=== PATIENT | male | born 1975 ===

== ENCOUNTER 2017-06-01 09:51 | Observation (INO) ==
[2017-06-01] MEDS ORDERED: ONDANSETRON 4 MG/2 ML VIAL IV PRN (12:18)
[2017-06-01] MEDS ORDERED: hydrALAZINE 20 MG/1 ML VIAL IV ONE (12:26)
[2017-06-01] MEDS ORDERED: ACETAMINOPHEN 325 MG TABLET PO PRN (12:46)
[2017-06-01] MEDS ORDERED: GLUCAGON 1 MG VIAL IM PRN (12:47)
[2017-06-01] MEDS ORDERED: DEXTROSE 50% 25 GM/50 ML VIAL IV PRN (12:47)
[2017-06-01] MEDS: CARVEDILOL 12.5 MG TABLET PO SCH ×2 (13:02→20:49)
[2017-06-01] MEDS: ASPIRIN EC 81 MG TABLET PO SCH (13:02)
[2017-06-01] MEDS: hydroCHLOROthiazide 25 MG TABLET PO SCH (13:02)
[2017-06-01] MEDS: GLIMEPIRIDE 4 MG TABLET PO SCH (13:02)
[2017-06-01] MEDS: CLOPIDOGREL 75 MG TABLET PO SCH (13:02)
[2017-06-01] MEDS: LOSARTAN 50 MG TABLET PO SCH (13:03)
[2017-06-01] MEDS ORDERED: DEXTROSE 5% NACL 0.45% 1,000 ML IV SCH (13:30)
[2017-06-01 15:54] LABS: Basophils % 0.3 % (0.0-0.8); Eosinophils # 0.1 10*3/uL (0.0-0.87); Eosinophils % 1.3 % (0.00-10.9); Hemoglobin 11.9 GM/DL (14.0-18.0); Immature Granulocytes % 0.2 %; Immature Granulocytes Absolute 0.02 #; Lymphocytes # 1.6 10*3/uL (1.4-4.0); Lymphocytes % 16.5 % (21.2-54.2); Mean Corpuscular Hemoglobin 31 PG (27-34); Mean Corpuscular Volume 91.9 FL (87-102); Mean Platelet Volume 11.2 FL (9.6-12.0); Monocytes # 0.8 10*3/uL (0.11-0.8); Monocytes % 8.2 % (1.7-12.7); Neutrophils % 73.5 % (38.7-73.9); Platelet Count 259 T/CUMM (130-400); Red Blood Count 3.81 MC/CUMM (3.8-5.5); Red Cell Distribution Width 12.8 % (9.3-17.3); White Blood Count 9.5 T/CUMM (4-12)
[2017-06-01 16:24] LABS: Calcium 8.2 MG/DL (8.5-10.1); Free T4 (Free Thyroxine) 1.11 NG/DL (0.76-1.46); Osmolality,Calculated 294.7 MOS/KG (273-304); Potassium 4.6 MMOL/L (3.5-5.1); Thyroid Stimulating Hormone 0.812 uIU/ml (0.358-3.74)
[2017-06-01] MEDS ORDERED: INSULIN NPH/REGULAR 70/30 100 UNIT/ML SUBCUT SCH (16:30)
[2017-06-01] MEDS ORDERED: ATORVASTATIN 20 MG TABLET PO SCH (21:00)
[2017-06-02] MEDS ORDERED: INSULIN NPH/REGULAR 70/30 100 UNIT/ML SUBCUT SCH (07:30)
[2017-06-02 07:37] LABS: Calcium 8.4 MG/DL (8.5-10.1); Potassium 5.1 MMOL/L (3.5-5.1)
[2017-06-02 07:43] LABS: Risk Ratio 3.43; VLDL CHOLESTEROL 24.4 MG/DL
[2017-06-02 08:11] VITALS: BP 169/79
[2017-06-02] MEDS ORDERED: PANTOPRAZOLE 40 MG TABLET PO SCH (09:00)
[2017-06-02] MEDS: GLIMEPIRIDE 4 MG TABLET PO SCH (09:12)
[2017-06-02] MEDS: LOSARTAN 50 MG TABLET PO SCH (09:13)
[2017-06-02] MEDS: CARVEDILOL 12.5 MG TABLET PO SCH (09:13)
[2017-06-02] MEDS: CLOPIDOGREL 75 MG TABLET PO SCH (09:13)
[2017-06-02] MEDS: ASPIRIN EC 81 MG TABLET PO SCH (09:13)
[2017-06-02] MEDS: hydroCHLOROthiazide 25 MG TABLET PO SCH (09:13)
== END 2017-06-02 10:30 | disposition home or self-care (01) ==
LOC: N.2E
PROVIDERS: ADMIT Family Medicine; ATTEND Family Medicine

== ENCOUNTER 2020-12-21 20:15 | Inpatient (IN) ==
[2020-12-21 22:59] LABS: Basophils # 0.1 10*3/uL (0.0-0.2); Basophils % 0.6 % (0.0-0.8); Eosinophils # 0.2 10*3/uL (0.0-0.87); Eosinophils % 2.3 % (0.00-10.9); Hematocrit 38.8 VOL% (42.0-52.0); Hemoglobin 12.1 GM/DL (14.0-18.0); Immature Granulocytes % 0.3 %; Immature Granulocytes Absolute 0.03 #; Lymphocytes # 1.2 10*3/uL (1.4-4.0); Mean Corpuscular HGB Conc 31.2 GM/DL (32-36); Mean Corpuscular Volume 93.9 FL (87-102); Mean Platelet Volume 9.8 FL (9.6-12.0); Monocytes % 6.8 % (1.7-12.7); Platelet Count 400 T/CUMM (130-400); Red Blood Count 4.13 MC/CUMM (3.8-5.5); Red Cell Distribution Width 13.5 % (9.3-17.3); White Blood Count 8.8 T/CUMM (4-12)
[2020-12-21 23:26] LABS: Alanine Aminotransferase 59 U/L (16-61); Albumin 2.4 G/DL (3.4-5.0); Alkaline Phosphatase 292 U/L (45-117); Aspartate Amino Transferase 33 U/L (0-37); Bilirubin,Total < 0.39 MG/DL (0.2-1.0); Blood Urea Nitrogen 53 MG/DL (7-18); Calcium 8.7 MG/DL (8.5-10.1); Carbon Dioxide 24 MMOL/L (21-32); Estimated Glom Filtration Rate 19 ML/MIN; Glucose 192 MG/DL (74-106); Osmolality,Calculated 295.5 MOS/KG (273-304); Potassium 4.3 MMOL/L (3.5-5.1); Sodium 139 MMOL/L (136-145); Total Protein 8.3 G/DL (6.4-8.2)
[2020-12-22] MEDS ORDERED: hydrALAZINE 20 MG/1 ML VIAL IV STA (00:16)
[2020-12-22] MEDS ORDERED: FUROSEMIDE 40 MG/4 ML VIAL IV STA (00:20)
[2020-12-22] MEDS ORDERED: DEXTROSE 50% 25 GM/50 ML VIAL IV PRN (00:24)
[2020-12-22] MEDS ORDERED: ONDANSETRON 4 MG/2 ML VIAL IV PRN (00:24)
[2020-12-22] MEDS ORDERED: diphenhydrAMINE CAP 25 MG CAPSULE PO PRN (00:24)
[2020-12-22] MEDS ORDERED: ACETAMINOPHEN 325 MG TABLET PO PRN (00:24)
[2020-12-22] MEDS ORDERED: guaiFENesin/DM ER 600-30 MG TABLET PO PRN (00:24)
[2020-12-22] MEDS ORDERED: MORPHINE 4 MG/1 ML VIAL IV PRN (00:24)
[2020-12-22] MEDS ORDERED: NICOTINE 21 MG/24 HR PATCH TRANSDERM PRN (00:24)
[2020-12-22] MEDS ORDERED: GLUCAGON 1 MG VIAL IM PRN (00:24)
[2020-12-22] MEDS: ALBUTEROL/IPRATROPIUM 3 ML NEB RESP TX SCH ×4 (01:07→19:01)
[2020-12-22] MEDS ORDERED: FUROSEMIDE 40 MG/4 ML VIAL IV SCH (08:00)
[2020-12-22] MEDS: carvediloL 12.5 MG TABLET PO SCH ×2 (09:24→20:55)
[2020-12-22] MEDS: ASPIRIN CHEW 81 MG TABLET PO SCH (09:25)
[2020-12-22] MEDS: INSULIN REGULAR 100 UNIT/ML SUBCUT SCH ×4 (09:28→20:55)
[2020-12-22 11:53] LABS: Uric Acid 7.3 MG/DL (3.5-7.2)
[2020-12-22 11:57] LABS: Cyclic Citrull Peptide Interp Negative
[2020-12-22] MEDS: FUROSEMIDE 100 MG/10 ML VIAL IV SCH ×2 (14:56→20:55)
[2020-12-22] MEDS: metOLazone 5 MG TABLET PO SCH (14:56)
[2020-12-22] MEDS: ATORVASTATIN 80 MG TABLET PO SCH (20:55)
[2020-12-23] MEDS: ALBUTEROL/IPRATROPIUM 3 ML NEB RESP TX SCH ×4 (00:58→19:34)
[2020-12-23 06:15] LABS: Basophils % 0.5 % (0.0-0.8); Eosinophils # 0.2 10*3/uL (0.0-0.87); Eosinophils % 2.2 % (0.00-10.9); Hematocrit 28.3 VOL% (42.0-52.0); Immature Granulocytes % 0.4 %; Immature Granulocytes Absolute 0.03 #; Lymphocytes # 1.3 10*3/uL (1.4-4.0); Lymphocytes % 17.2 % (21.2-54.2); Mean Corpuscular HGB Conc 31.1 GM/DL (32-36); Mean Corpuscular Volume 95.6 FL (87-102); Monocytes % 10.4 % (1.7-12.7); Neutrophils % 69.3 % (38.7-73.9); Platelet Count 363 T/CUMM (130-400); Red Cell Distribution Width 13.6 % (9.3-17.3); White Blood Count 7.7 T/CUMM (4-12)
[2020-12-23 06:20] LABS: Hemoglobin 8.8 GM/DL (14.0-18.0); Red Blood Count 2.96 MC/CUMM (3.8-5.5)
[2020-12-23 06:25] LABS: Potassium 4.4 MMOL/L (3.5-5.1)
[2020-12-23 06:40] LABS: Risk Ratio 2.23; VLDL CHOLESTEROL 11.6 MG/DL
[2020-12-23] MEDS: metOLazone 5 MG TABLET PO SCH (08:34)
[2020-12-23] MEDS: hydrALAZINE 25 MG TABLET PO SCH ×3 (08:34→20:25)
[2020-12-23] MEDS: ASPIRIN CHEW 81 MG TABLET PO SCH (08:34)
[2020-12-23] MEDS: ISOSORBIDE MONONITRATE 30 MG TABLET PO SCH (08:35)
[2020-12-23] MEDS: carvediloL 12.5 MG TABLET PO SCH ×2 (08:35→20:25)
[2020-12-23] MEDS: FUROSEMIDE 100 MG/10 ML VIAL IV SCH ×3 (08:35→20:25)
[2020-12-23] MEDS: INSULIN REGULAR 100 UNIT/ML SUBCUT SCH ×4 (08:36→20:25)
[2020-12-23] MEDS: INSULIN GLARGINE 100 UNIT/ML SUBCUT SCH (15:10)
[2020-12-23] MEDS: ATORVASTATIN 80 MG TABLET PO SCH (20:25)
[2020-12-24] MEDS: ALBUTEROL/IPRATROPIUM 3 ML NEB RESP TX SCH ×4 (00:16→19:59)
[2020-12-24 05:24] LABS: Basophils % 0.5 % (0.0-0.8); Eosinophils # 0.2 10*3/uL (0.0-0.87); Eosinophils % 2.8 % (0.00-10.9); Hemoglobin 9.5 GM/DL (14.0-18.0); Immature Granulocytes % 0.4 %; Immature Granulocytes Absolute 0.03 #; Lymphocytes # 1.2 10*3/uL (1.4-4.0); Lymphocytes % 15.5 % (21.2-54.2); Mean Corpuscular HGB Conc 31.7 GM/DL (32-36); Mean Corpuscular Volume 94.3 FL (87-102); Mean Platelet Volume 9.8 FL (9.6-12.0); Monocytes % 9.3 % (1.7-12.7); Neutrophils % 71.5 % (38.7-73.9); Platelet Count 340 T/CUMM (130-400); Red Blood Count 3.18 MC/CUMM (3.8-5.5); Red Cell Distribution Width 13.2 % (9.3-17.3); White Blood Count 7.9 T/CUMM (4-12)
[2020-12-24 05:45] LABS: Calcium 7.9 MG/DL (8.5-10.1); Osmolality,Calculated 291.2 MOS/KG (273-304); Potassium 4.1 MMOL/L (3.5-5.1)
[2020-12-24] MEDS: INSULIN REGULAR 100 UNIT/ML SUBCUT SCH ×4 (09:13→20:24)
[2020-12-24] MEDS: INSULIN GLARGINE 100 UNIT/ML SUBCUT SCH (09:16)
[2020-12-24] MEDS: hydrALAZINE 25 MG TABLET PO SCH ×3 (09:16→20:24)
[2020-12-24] MEDS: ISOSORBIDE MONONITRATE 30 MG TABLET PO SCH (09:17)
[2020-12-24] MEDS: ASPIRIN CHEW 81 MG TABLET PO SCH (09:17)
[2020-12-24] MEDS: carvediloL 12.5 MG TABLET PO SCH ×2 (09:17→20:24)
[2020-12-24] MEDS: metOLazone 5 MG TABLET PO SCH (09:17)
[2020-12-24] MEDS: FUROSEMIDE 100 MG/10 ML VIAL IV SCH ×3 (09:18→20:32)
[2020-12-24] MEDS ORDERED: SKIN HEALING OINT (AQUAPHOR) 50 GM TUBE TOP PRN (13:10)
[2020-12-24] MEDS: ATORVASTATIN 80 MG TABLET PO SCH (20:24)
[2020-12-25] MEDS: ALBUTEROL/IPRATROPIUM 3 ML NEB RESP TX SCH ×4 (00:35→19:26)
[2020-12-25 05:34] LABS: Basophils % 0.5 % (0.0-0.8); Eosinophils # 0.2 10*3/uL (0.0-0.87); Eosinophils % 2.5 % (0.00-10.9); Hematocrit 30.8 VOL% (42.0-52.0); Immature Granulocytes % 0.2 %; Immature Granulocytes Absolute 0.02 #; Lymphocytes # 1.3 10*3/uL (1.4-4.0); Lymphocytes % 15.5 % (21.2-54.2); Mean Corpuscular HGB Conc 32.5 GM/DL (32-36); Mean Corpuscular Volume 92.2 FL (87-102); Monocytes % 9.8 % (1.7-12.7); Neutrophils % 71.5 % (38.7-73.9); Platelet Count 330 T/CUMM (130-400); Red Blood Count 3.34 MC/CUMM (3.8-5.5); Red Cell Distribution Width 13.2 % (9.3-17.3); White Blood Count 8.3 T/CUMM (4-12)
[2020-12-25 05:55] LABS: Calcium 8.1 MG/DL (8.5-10.1); Osmolality,Calculated 296.2 MOS/KG (273-304); Potassium 4.2 MMOL/L (3.5-5.1)
[2020-12-25] MEDS: ASPIRIN CHEW 81 MG TABLET PO SCH (08:14)
[2020-12-25] MEDS: ISOSORBIDE MONONITRATE 30 MG TABLET PO SCH (08:14)
[2020-12-25] MEDS: metOLazone 5 MG TABLET PO SCH (08:15)
[2020-12-25] MEDS: INSULIN REGULAR 100 UNIT/ML SUBCUT SCH ×4 (08:16→20:04)
[2020-12-25] MEDS: carvediloL 12.5 MG TABLET PO SCH ×2 (08:16→20:04)
[2020-12-25] MEDS: INSULIN GLARGINE 100 UNIT/ML SUBCUT SCH (08:17)
[2020-12-25] MEDS: FUROSEMIDE 100 MG/10 ML VIAL IV SCH ×2 (08:18→15:47)
[2020-12-25] MEDS: ACETYLCYSTEINE 600 MG CAPSULE PO SCH ×2 (13:52→20:04)
[2020-12-25] MEDS: ATORVASTATIN 80 MG TABLET PO SCH (20:04)
[2020-12-25] MEDS: SODIUM BICARB INJ 50 MEQ in SODIUM CHLORIDE 0.45% 1,000 ML IV SCH (23:00)
[2020-12-26] MEDS: ALBUTEROL/IPRATROPIUM 3 ML NEB RESP TX SCH ×4 (00:45→19:43)
[2020-12-26 05:17] LABS: Basophils % 0.4 % (0.0-0.8); Eosinophils # 0.2 10*3/uL (0.0-0.87); Eosinophils % 2.2 % (0.00-10.9); Hematocrit 31.5 VOL% (42.0-52.0); Hemoglobin 9.9 GM/DL (14.0-18.0); Immature Granulocytes % 0.2 %; Immature Granulocytes Absolute 0.02 #; Lymphocytes # 1.3 10*3/uL (1.4-4.0); Lymphocytes % 14.9 % (21.2-54.2); Mean Corpuscular HGB Conc 31.4 GM/DL (32-36); Mean Corpuscular Volume 94.3 FL (87-102); Mean Platelet Volume 9.8 FL (9.6-12.0); Monocytes % 9.7 % (1.7-12.7); Neutrophils % 72.6 % (38.7-73.9); Platelet Count 341 T/CUMM (130-400); Red Blood Count 3.34 MC/CUMM (3.8-5.5); Red Cell Distribution Width 13.3 % (9.3-17.3); White Blood Count 8.5 T/CUMM (4-12)
[2020-12-26 05:59] LABS: Potassium 4.1 MMOL/L (3.5-5.1)
[2020-12-26] MEDS: ASPIRIN CHEW 81 MG TABLET PO SCH (08:44)
[2020-12-26] MEDS: ISOSORBIDE MONONITRATE 30 MG TABLET PO SCH (08:44)
[2020-12-26] MEDS: carvediloL 12.5 MG TABLET PO SCH ×2 (08:44→20:27)
[2020-12-26] MEDS: ACETYLCYSTEINE 600 MG CAPSULE PO SCH ×2 (08:44→20:27)
[2020-12-26] MEDS: INSULIN GLARGINE 100 UNIT/ML SUBCUT SCH (08:45)
[2020-12-26] MEDS: INSULIN REGULAR 100 UNIT/ML SUBCUT SCH ×4 (08:46→20:27)
[2020-12-26] MEDS ORDERED: HEPARIN/NACL 0.9% 2 UNITS/ML 2,000 UNIT/1,000 ML BAG IV ONE (12:16)
[2020-12-26] MEDS ORDERED: LIDOCAINE 1% 20 ML VIAL ONE (12:16)
[2020-12-26] MEDS ORDERED: DIAZEPAM 5 MG TABLET PO ONE (13:00)
[2020-12-26] MEDS ORDERED: diphenhydrAMINE CAP 25 MG CAPSULE PO ONE (13:00)
[2020-12-26] MEDS: SODIUM BICARB INJ 50 MEQ in SODIUM CHLORIDE 0.45% 1,000 ML IV SCH (13:15)
[2020-12-26] MEDS ORDERED: HYDROmorphone 2 MG/1 ML VIAL ONE (14:52)
[2020-12-26] MEDS ORDERED: MIDAZOLAM 2 MG/2 ML VIAL ONE (14:52)
[2020-12-26] MEDS ORDERED: DEXTROSE 50% 25 GM/50 ML VIAL IV PRN (15:56)
[2020-12-26] MEDS: hydrALAZINE 20 MG/1 ML VIAL IV PRN (19:17)
[2020-12-26] MEDS: ATORVASTATIN 80 MG TABLET PO SCH (20:27)
[2020-12-27] MEDS: ALBUTEROL/IPRATROPIUM 3 ML NEB RESP TX SCH ×4 (00:18→19:05)
[2020-12-27] MEDS: SODIUM BICARB INJ 50 MEQ in SODIUM CHLORIDE 0.45% 1,000 ML IV SCH (01:58)
[2020-12-27 04:49] LABS: Basophils % 0.4 % (0.0-0.8); Eosinophils # 0.1 10*3/uL (0.0-0.87); Eosinophils % 1.3 % (0.00-10.9); Hematocrit 34.4 VOL% (42.0-52.0); Hemoglobin 10.8 GM/DL (14.0-18.0); Immature Granulocytes % 0.5 %; Immature Granulocytes Absolute 0.04 #; Lymphocytes # 0.8 10*3/uL (1.4-4.0); Lymphocytes % 9.5 % (21.2-54.2); Mean Corpuscular HGB Conc 31.4 GM/DL (32-36); Mean Corpuscular Volume 94.5 FL (87-102); Mean Platelet Volume 9.7 FL (9.6-12.0); Monocytes % 6.1 % (1.7-12.7); Neutrophils % 82.2 % (38.7-73.9); Platelet Count 349 T/CUMM (130-400); Red Blood Count 3.64 MC/CUMM (3.8-5.5); Red Cell Distribution Width 13.4 % (9.3-17.3); White Blood Count 8.6 T/CUMM (4-12)
[2020-12-27] MEDS: FUROSEMIDE 40 MG/4 ML VIAL IV SCH ×5 (05:10→21:18)
[2020-12-27 05:11] LABS: Calcium 8.3 MG/DL (8.5-10.1); Osmolality,Calculated 295.1 MOS/KG (273-304); Potassium 4.2 MMOL/L (3.5-5.1)
[2020-12-27] MEDS: carvediloL 12.5 MG TABLET PO SCH ×3 (07:46→21:12)
[2020-12-27] MEDS: metOLazone 5 MG TABLET PO SCH ×2 (07:46→10:13)
[2020-12-27] MEDS: ACETYLCYSTEINE 600 MG CAPSULE PO SCH ×2 (07:47→10:13)
[2020-12-27] MEDS: ISOSORBIDE MONONITRATE 30 MG TABLET PO SCH ×2 (07:47→10:09)
[2020-12-27] MEDS: ASPIRIN CHEW 81 MG TABLET PO SCH ×2 (07:47→10:09)
[2020-12-27] MEDS: INSULIN GLARGINE 100 UNIT/ML SUBCUT SCH ×2 (07:48→10:10)
[2020-12-27] MEDS: INSULIN REGULAR 100 UNIT/ML SUBCUT SCH ×4 (10:08→21:18)
[2020-12-27] MEDS: ATORVASTATIN 80 MG TABLET PO SCH (21:12)
[2020-12-28 06:26] LABS: Basophils % 0.4 % (0.0-0.8); Eosinophils # 0.2 10*3/uL (0.0-0.87); Hematocrit 30.8 VOL% (42.0-52.0); Hemoglobin 9.9 GM/DL (14.0-18.0); Immature Granulocytes % 0.4 %; Immature Granulocytes Absolute 0.03 #; Lymphocytes # 0.9 10*3/uL (1.4-4.0); Lymphocytes % 10.7 % (21.2-54.2); Mean Corpuscular HGB Conc 32.1 GM/DL (32-36); Mean Corpuscular Volume 92.8 FL (87-102); Monocytes % 9.5 % (1.7-12.7); Platelet Count 306 T/CUMM (130-400); Red Blood Count 3.32 MC/CUMM (3.8-5.5); Red Cell Distribution Width 13.6 % (9.3-17.3); White Blood Count 8.4 T/CUMM (4-12)
[2020-12-28 06:44] LABS: Osmolality,Calculated 301.1 MOS/KG (273-304); Potassium 4.1 MMOL/L (3.5-5.1)
[2020-12-28] MEDS: ALBUTEROL/IPRATROPIUM 3 ML NEB RESP TX SCH ×4 (07:46→19:12)
[2020-12-28] MEDS: ASPIRIN CHEW 81 MG TABLET PO SCH (08:14)
[2020-12-28] MEDS: metOLazone 5 MG TABLET PO SCH (08:14)
[2020-12-28] MEDS: ISOSORBIDE MONONITRATE 30 MG TABLET PO SCH (08:14)
[2020-12-28] MEDS: carvediloL 12.5 MG TABLET PO SCH ×2 (08:14→21:01)
[2020-12-28] MEDS: INSULIN GLARGINE 100 UNIT/ML SUBCUT SCH (08:15)
[2020-12-28] MEDS: INSULIN REGULAR 100 UNIT/ML SUBCUT SCH ×4 (08:15→21:02)
[2020-12-28] MEDS: FUROSEMIDE 40 MG/4 ML VIAL IV SCH (12:14)
[2020-12-28] MEDS: ATORVASTATIN 80 MG TABLET PO SCH (21:01)
[2020-12-29] MEDS: hydrALAZINE 20 MG/1 ML VIAL IV PRN ×2 (00:40→16:06)
[2020-12-29 06:50] LABS: Basophils % 0.2 % (0.0-0.8); Eosinophils # 0.1 10*3/uL (0.0-0.87); Hematocrit 31.8 VOL% (42.0-52.0); Immature Granulocytes % 0.5 %; Immature Granulocytes Absolute 0.05 #; Lymphocytes % 11.1 % (21.2-54.2); Mean Corpuscular HGB Conc 31.4 GM/DL (32-36); Mean Corpuscular Volume 93.8 FL (87-102); Monocytes % 8.1 % (1.7-12.7); Neutrophils % 79.1 % (38.7-73.9); Platelet Count 308 T/CUMM (130-400); Red Blood Count 3.39 MC/CUMM (3.8-5.5); Red Cell Distribution Width 13.2 % (9.3-17.3); White Blood Count 9.3 T/CUMM (4-12)
[2020-12-29 07:30] LABS: Calcium 8.3 MG/DL (8.5-10.1); Osmolality,Calculated 294.5 MOS/KG (273-304)
[2020-12-29] MEDS: INSULIN REGULAR 100 UNIT/ML SUBCUT SCH ×4 (08:17→20:34)
[2020-12-29] MEDS: INSULIN GLARGINE 100 UNIT/ML SUBCUT SCH (08:17)
[2020-12-29] MEDS: ALBUTEROL/IPRATROPIUM 3 ML NEB RESP TX SCH ×4 (08:25→19:40)
[2020-12-29] MEDS: carvediloL 12.5 MG TABLET PO SCH (09:08)
[2020-12-29] MEDS: metOLazone 5 MG TABLET PO SCH (12:48)
[2020-12-29] MEDS: ASPIRIN CHEW 81 MG TABLET PO SCH (12:48)
[2020-12-29] MEDS: ISOSORBIDE MONONITRATE 30 MG TABLET PO SCH (15:30)
[2020-12-29 16:14] LABS: Hepatitis B Core IgM Quant < 0.05 Index; Hepatitis B Surface Ag Quant < 0.10 Index; Hepatitis B Surface Ag Result Non-Reactive (NonReactive); Hepatitis C Virus Ab Quant 0.04 Index; Hepatitis C Virus Ab Result Non-Reactive (NonReactive)
[2020-12-29] MEDS: carvediloL 25 MG TABLET PO SCH (20:34)
[2020-12-29] MEDS: ATORVASTATIN 80 MG TABLET PO SCH (20:34)
[2020-12-30] MEDS: ALBUTEROL/IPRATROPIUM 3 ML NEB RESP TX SCH ×4 (01:00→20:05)
[2020-12-30 04:35] LABS: Basophils % 0.5 % (0.0-0.8); Eosinophils # 0.1 10*3/uL (0.0-0.87); Hematocrit 30.3 VOL% (42.0-52.0); Hemoglobin 9.7 GM/DL (14.0-18.0); Immature Granulocytes % 0.5 %; Immature Granulocytes Absolute 0.04 #; Lymphocytes # 0.8 10*3/uL (1.4-4.0); Lymphocytes % 9.7 % (21.2-54.2); Mean Corpuscular Volume 91.5 FL (87-102); Mean Platelet Volume 10.4 FL (9.6-12.0); Monocytes % 9.1 % (1.7-12.7); Neutrophils % 79.2 % (38.7-73.9); Platelet Count 296 T/CUMM (130-400); Red Blood Count 3.31 MC/CUMM (3.8-5.5); Red Cell Distribution Width 13.2 % (9.3-17.3); White Blood Count 8.2 T/CUMM (4-12)
[2020-12-30 04:51] LABS: Osmolality,Calculated 300.4 MOS/KG (273-304)
[2020-12-30] MEDS: INSULIN REGULAR 100 UNIT/ML SUBCUT SCH ×4 (08:08→20:36)
[2020-12-30] MEDS: ASPIRIN CHEW 81 MG TABLET PO SCH (08:08)
[2020-12-30] MEDS: metOLazone 5 MG TABLET PO SCH (08:08)
[2020-12-30] MEDS: INSULIN GLARGINE 100 UNIT/ML SUBCUT SCH (08:08)
[2020-12-30] MEDS: carvediloL 25 MG TABLET PO SCH ×2 (08:08→20:36)
[2020-12-30] MEDS ORDERED: SODIUM CHLORIDE 0.9% 250 ML IV SCH (08:30)
[2020-12-30] MEDS: ISOSORBIDE MONONITRATE 30 MG TABLET PO SCH (08:48)
[2020-12-30] MEDS ORDERED: BUPIVACAINE MPF 0.25% 30 ML VIAL ONE (09:01)
[2020-12-30] MEDS ORDERED: HEPARIN 5,000 UNIT/1 ML VIAL ONE (09:01)
[2020-12-30] MEDS ORDERED: LIDOCAINE 1%/EPI INJ 20 ML VIAL ONE (09:01)
[2020-12-30] MEDS ORDERED: MIDAZOLAM 2 MG/2 ML VIAL ONE (09:04)
[2020-12-30] MEDS ORDERED: fentaNYL 100 MCG/2 ML VIAL ONE (09:05)
[2020-12-30] MEDS ORDERED: TISSUE ADHESIVE 1 EACH APPLICATOR TOP ONE (09:32)
[2020-12-30] MEDS ORDERED: HEPARIN 10,000 UNIT/10 ML VIAL IV ONE (16:30)
[2020-12-30] MEDS: ATORVASTATIN 80 MG TABLET PO SCH (20:36)
[2020-12-31] MEDS: ALBUTEROL/IPRATROPIUM 3 ML NEB RESP TX SCH ×4 (01:00→19:22)
[2020-12-31 05:08] LABS: Basophils % 0.3 % (0.0-0.8); Eosinophils # 0.1 10*3/uL (0.0-0.87); Eosinophils % 0.7 % (0.00-10.9); Hematocrit 30.7 VOL% (42.0-52.0); Hemoglobin 10.1 GM/DL (14.0-18.0); Immature Granulocytes % 0.3 %; Immature Granulocytes Absolute 0.03 #; Lymphocytes # 0.7 10*3/uL (1.4-4.0); Lymphocytes % 8.3 % (21.2-54.2); Mean Corpuscular HGB Conc 32.9 GM/DL (32-36); Mean Corpuscular Volume 90.6 FL (87-102); Mean Platelet Volume 10.5 FL (9.6-12.0); Monocytes % 8.3 % (1.7-12.7); Neutrophils % 82.1 % (38.7-73.9); Platelet Count 265 T/CUMM (130-400); Red Blood Count 3.39 MC/CUMM (3.8-5.5); Red Cell Distribution Width 13.2 % (9.3-17.3); White Blood Count 8.9 T/CUMM (4-12)
[2020-12-31 05:19] LABS: ABG Base Excess -0.6 MMOL/L (-2.5-2.5); ABG HCO3 23.9 MMOL/L (20-26); ABG Oxygen Saturation 93.2 % (95-100); ABG PCO2 38.4 MM HG (35-48); ABG PH 7.412 (7.35-7.45); ABG PO2 68.1 MM HG (80-95); ABG TCO2 25.1 MMOL/L (23-27); Allen Test Positive; Pt O2 Delivery Device Room Air
[2020-12-31 05:39] LABS: Osmolality,Calculated 300.2 MOS/KG (273-304); Potassium 3.8 MMOL/L (3.5-5.1)
[2020-12-31 05:41] LABS: Bilirubin,Total 0.8 MG/DL (0.2-1.0); Calcium 8.1 MG/DL (8.5-10.1); Osmolality,Calculated 299.2 MOS/KG (273-304); Potassium 3.8 MMOL/L (3.5-5.1); Total Protein 6.7 G/DL (6.4-8.2)
[2020-12-31] MEDS: ISOSORBIDE MONONITRATE 30 MG TABLET PO SCH (08:23)
[2020-12-31] MEDS: ASPIRIN CHEW 81 MG TABLET PO SCH (08:23)
[2020-12-31] MEDS: metOLazone 5 MG TABLET PO SCH (08:23)
[2020-12-31] MEDS: INSULIN GLARGINE 100 UNIT/ML SUBCUT SCH (08:23)
[2020-12-31] MEDS: carvediloL 25 MG TABLET PO SCH ×2 (08:23→20:14)
[2020-12-31] MEDS: INSULIN REGULAR 100 UNIT/ML SUBCUT SCH ×4 (08:27→20:13)
[2020-12-31] MEDS ORDERED: CHLORHEXIDINE 0.12% ORAL RINSE 60 ML BOTTLE SWISH/SPIT SCH (09:00)
[2020-12-31] MEDS ORDERED: CHLORHEXIDINE 4% SOLN 118 ML BOTTLE TOP SCH (15:00)
[2020-12-31] MEDS: CHLORHEXIDINE 0.12% ORAL RINSE 60 ML BOTTLE SWISH/SPIT SCH (20:13)
[2020-12-31] MEDS: ATORVASTATIN 80 MG TABLET PO SCH (20:14)
[2021-01-01] MEDS: ALBUTEROL/IPRATROPIUM 3 ML NEB RESP TX SCH ×4 (01:37→20:11)
[2021-01-01 04:54] LABS: Basophils % 0.2 % (0.0-0.8); Eosinophils # 0.2 10*3/uL (0.0-0.87); Eosinophils % 1.9 % (0.00-10.9); Hematocrit 27.5 VOL% (42.0-52.0); Immature Granulocytes % 0.2 %; Immature Granulocytes Absolute 0.02 #; Lymphocytes # 1.1 10*3/uL (1.4-4.0); Lymphocytes % 12.5 % (21.2-54.2); Mean Corpuscular HGB Conc 32.7 GM/DL (32-36); Mean Corpuscular Volume 89.9 FL (87-102); Mean Platelet Volume 10.6 FL (9.6-12.0); Monocytes % 10.6 % (1.7-12.7); Neutrophils % 74.6 % (38.7-73.9); Platelet Count 268 T/CUMM (130-400); Red Blood Count 3.06 MC/CUMM (3.8-5.5); Red Cell Distribution Width 13.2 % (9.3-17.3); White Blood Count 8.9 T/CUMM (4-12)
[2021-01-01] MEDS ORDERED: CEFUROXIME INJ 1,500 MG in SODIUM CHLORIDE 0.9% 100 ML IV ONE (05:00)
[2021-01-01 05:32] LABS: Bilirubin,Total 0.4 MG/DL (0.2-1.0); Calcium 7.8 MG/DL (8.5-10.1); Potassium 3.7 MMOL/L (3.5-5.1); Total Protein 6.6 G/DL (6.4-8.2)
[2021-01-01] MEDS ORDERED: BUPIVACAINE MPF 0.25% 30 ML VIAL ONE (06:54)
[2021-01-01] MEDS ORDERED: LIDOCAINE 1%/EPI INJ 20 ML VIAL ONE (06:54)
[2021-01-01] MEDS ORDERED: TISSUE ADHESIVE 1 EACH APPLICATOR TOP ONE (06:54)
[2021-01-01] MEDS ORDERED: HEPARIN 5,000 UNIT/1 ML VIAL ONE (06:54)
[2021-01-01] MEDS ORDERED: MIDAZOLAM 2 MG/2 ML VIAL ONE ×2 (06:55→07:54)
[2021-01-01] MEDS ORDERED: fentaNYL 100 MCG/2 ML VIAL ONE ×2 (06:55→08:16)
[2021-01-01] MEDS ORDERED: SODIUM CHLORIDE 0.9% 250 ML IV SCH (07:30)
[2021-01-01] MEDS ORDERED: LIDOCAINE 2% 5 ML VIAL ONE (07:57)
[2021-01-01] MEDS ORDERED: propofoL 200 MG/20 ML VIAL IV ONE (07:57)
[2021-01-01] MEDS: INSULIN REGULAR 100 UNIT/ML SUBCUT SCH ×4 (08:05→20:39)
[2021-01-01] MEDS: INSULIN GLARGINE 100 UNIT/ML SUBCUT SCH (11:30)
[2021-01-01] MEDS ORDERED: HEPARIN 10,000 UNIT/10 ML VIAL IV SCH (12:00)
[2021-01-01] MEDS: CHLORHEXIDINE 0.12% ORAL RINSE 60 ML BOTTLE SWISH/SPIT SCH ×2 (13:23→20:39)
[2021-01-01] MEDS: metOLazone 5 MG TABLET PO SCH (13:23)
[2021-01-01] MEDS: carvediloL 25 MG TABLET PO SCH ×2 (13:23→20:39)
[2021-01-01] MEDS: ASPIRIN CHEW 81 MG TABLET PO SCH (13:23)
[2021-01-01] MEDS: ISOSORBIDE MONONITRATE 30 MG TABLET PO SCH (13:24)
[2021-01-01] MEDS: CHLORHEXIDINE 4% SOLN 118 ML BOTTLE TOP SCH ×2 (14:16→20:40)
[2021-01-01] MEDS: ASCORBIC ACID 500 MG TABLET PO SCH (20:38)
[2021-01-01] MEDS: ATORVASTATIN 80 MG TABLET PO SCH (20:38)
[2021-01-02] MEDS: ALBUTEROL/IPRATROPIUM 3 ML NEB RESP TX SCH ×3 (00:02→20:59)
[2021-01-02] MEDS ORDERED: VANCOMYCIN 500 MG VIAL ONE (04:23)
[2021-01-02] MEDS ORDERED: VANCOMYCIN 1,000 MG VIAL ONE (04:23)
[2021-01-02] MEDS ORDERED: PAPAVERINE 60 MG/2 ML VIAL ONE (04:23)
[2021-01-02] MEDS ORDERED: CEFUROXIME INJ 1,500 MG in SODIUM CHLORIDE 0.9% 100 ML IV ONE (05:00)
[2021-01-02] MEDS ORDERED: DIAZEPAM 5 MG TABLET PO ONE (05:45)
[2021-01-02] MEDS ORDERED: FAMOTIDINE 20 MG TABLET PO ONE (05:45)
[2021-01-02] MEDS ORDERED: CALCIUM CHLORIDE 1,000 MG/10 ML VIAL IV ONE ×2 (05:50→12:02)
[2021-01-02] MEDS ORDERED: ETOMIDATE 40 MG/20 ML VIAL IV ONE (05:50)
[2021-01-02] MEDS ORDERED: VECURONIUM 10 MG VIAL IV ONE ×4 (05:50→07:24)
[2021-01-02] MEDS ORDERED: LIDOCAINE 2% 5 ML VIAL ONE ×3 (05:50→12:22)
[2021-01-02] MEDS: CHLORHEXIDINE 4% SOLN 118 ML BOTTLE TOP SCH (05:51)
[2021-01-02 05:53] LABS: Basophils # 0.1 10*3/uL (0.0-0.2); Basophils % 0.7 % (0.0-0.8); Eosinophils # 0.2 10*3/uL (0.0-0.87); Hematocrit 30.4 VOL% (42.0-52.0); Hemoglobin 9.9 GM/DL (14.0-18.0); Immature Granulocytes % 0.1 %; Immature Granulocytes Absolute 0.01 #; Lymphocytes # 1.1 10*3/uL (1.4-4.0); Lymphocytes % 13.8 % (21.2-54.2); Mean Corpuscular HGB Conc 32.6 GM/DL (32-36); Mean Corpuscular Volume 90.5 FL (87-102); Mean Platelet Volume 10.8 FL (9.6-12.0); Monocytes % 10.5 % (1.7-12.7); Neutrophils % 71.9 % (38.7-73.9); Platelet Count 262 T/CUMM (130-400); Red Blood Count 3.36 MC/CUMM (3.8-5.5); Red Cell Distribution Width 13.1 % (9.3-17.3); White Blood Count 7.7 T/CUMM (4-12)
[2021-01-02] MEDS ORDERED: AMINOCAPROIC ACID 5,000 MG/20 ML VIAL ONE ×5 (05:57→06:16)
[2021-01-02 06:15] LABS: Calcium 8.3 MG/DL (8.5-10.1); Potassium 3.8 MMOL/L (3.5-5.1)
[2021-01-02] MEDS ORDERED: MIDAZOLAM 10 MG/2 ML VIAL ONE (06:15)
[2021-01-02] MEDS ORDERED: HEPARIN/NACL 0.9% 2 UNITS/ML 1,000 UNIT/500 ML BAG IV ONE (06:15)
[2021-01-02] MEDS ORDERED: NITROGLYCERIN DRIP 50 MG/250 ML BOTTLE IV ONE (06:15)
[2021-01-02] MEDS ORDERED: SUFentanil 250 MCG/5 ML AMP ONE (06:15)
[2021-01-02] MEDS ORDERED: PHENYLEPHRINE DRIP 20 MG/250 ML PREMIX IV ONE (06:16)
[2021-01-02] MEDS ORDERED: ePHEDrine 50 MG/ML VIAL ONE (06:19)
[2021-01-02] MEDS ORDERED: SEVOFLURANE 1 UNIT/15 MINUTE INH ONE ×23 (06:52→13:35)
[2021-01-02] MEDS ORDERED: SUCCINYLCHOLINE 200 MG/10 ML VIAL ONE (07:10)
[2021-01-02] MEDS ORDERED: MINERAL OIL/PETROLATUM OPH OINT 3.5 GM TUBE ONE (07:10)
[2021-01-02 07:48] LABS: ABG Base Excess -0.9 MMOL/L (-2.5-2.5); ABG HCO3 23.7 MMOL/L (20-26); ABG Oxygen Saturation 98.3 % (95-100); ABG PCO2 49.9 MM HG (35-48); ABG PH 7.317 (7.35-7.45); ABG TCO2 23.8 MMOL/L (23-27); Glucose Heart Surgery 236 MG/DL (74-106); Hemoglobin Heart Surgery 8.7 G/DL (14.0-18.0); Ionized Calcium Arterial 1.14 MMOL/L (1.21-1.46); PCO2 Patient Temp Arterial 49.9 MMHG; PH Patient Temp Arterial 7.317; Patient Temperature 37 CELCIUS; Potassium Heart/CVR 4.1 MMOL/L (3.5-5.1); Sodium Heart/CVR 134 MMOL/L (135-145)
[2021-01-02 08:04] LABS: Amorphous Crystals,Urine Few /HPF (Few); Bilirubin,Urine Negative (Negative); Blood, Urine Negative (Negative); Glucose,Urine (UA) 150 mg/dL (Negative); Ketones,Urine Negative (Negative); Nitrite,Urine Negative (Negative); Protein,Urine >=500 MG/DL; RBC,Urine 2 /HPF (0-4); Squamous Epithelial Cell,Urine Occasional /HPF (0-10); Urine Appearance CLEAR (Clear); Urine Color Yellow (Yellow); Urine Specific Gravity 1.011 (1.001-1.035); Urine Urobilinogen < 2.0 EU/DL (0.2-1.0)
[2021-01-02] MEDS ORDERED: SODIUM CHLORIDE 0.9% 100 ML IV ONE (08:48)
[2021-01-02] MEDS ORDERED: LACTATED RINGERS 2,000 ML IV ONE (08:48)
[2021-01-02] MEDS ORDERED: SODIUM CHLORIDE 0.9% 1,000 ML IV ONE (08:48)
[2021-01-02] MEDS ORDERED: SODIUM CHLORIDE 0.9% 250 ML IV ONE (08:48)
[2021-01-02] MEDS ORDERED: ISOSORBIDE MONONITRATE 30 MG TABLET PO SCH (09:00)
[2021-01-02 09:27] LABS: Hematocrit Heart Surgery 21.6 PERCENT (42-52); Hemoglobin Heart Surgery 6.9 G/DL (14.0-18.0); PH Patient Temp Venous 7.461; PO2 Patient Temp Venous 35.9 MM HG; Potassium Heart/CVR 4.3 MMOL/L (3.5-5.1); VBG Base Excess 0.1 MEQ/L (0-4); VBG HCO3 24.4 MEQ/L (24-28); VBG Oxygen Saturation 81.8 %; VBG PCO2 38.1 MMHG (41-51); VBG PH 7.417; VBG PO2 44.1 MMHG (17-40); VBG Total CO2 23.3 MMOL/L
[2021-01-02] MEDS ORDERED: PHENYLEPHRINE DRIP 40 MG/250 ML PREMIX IV ONE (09:33)
[2021-01-02 09:57] LABS: Hematocrit Heart Surgery 23.2 PERCENT (42-52); Hemoglobin Heart Surgery 7.4 G/DL (14.0-18.0); PCO2 Patient Temp Venous 30.6 MM HG; PH Patient Temp Venous 7.453; PO2 Patient Temp Venous 36.8 MM HG; Potassium Heart/CVR 3.9 MMOL/L (3.5-5.1); VBG Base Excess -1.9 MEQ/L (0-4); VBG HCO3 22.6 MEQ/L (24-28); VBG PCO2 35.3 MMHG (41-51); VBG PH 7.409; VBG PO2 45.2 MMHG (17-40); VBG Total CO2 21.1 MMOL/L
[2021-01-02 10:30] LABS: Hematocrit Heart Surgery 28.2 PERCENT (42-52); Hemoglobin Heart Surgery 9.1 G/DL (14.0-18.0); PCO2 Patient Temp Venous 35.2 MM HG; PH Patient Temp Venous 7.412; PO2 Patient Temp Venous 37.9 MM HG; Potassium Heart/CVR 4.2 MMOL/L (3.5-5.1); VBG Base Excess -1.7 MEQ/L (0-4); VBG HCO3 22.6 MEQ/L (24-28); VBG Oxygen Saturation 74.6 %; VBG PCO2 35.2 MMHG (41-51); VBG PH 7.412; VBG PO2 37.9 MMHG (17-40); VBG Total CO2 20.7 MMOL/L
[2021-01-02 10:57] LABS: Hematocrit Heart Surgery 27.5 PERCENT (42-52); Hemoglobin Heart Surgery 8.9 G/DL (14.0-18.0); PCO2 Patient Temp Venous 32.3 MM HG; PH Patient Temp Venous 7.43; Potassium Heart/CVR 4.2 MMOL/L (3.5-5.1); VBG Base Excess -2.2 MEQ/L (0-4); VBG HCO3 22.3 MEQ/L (24-28); VBG Oxygen Saturation 80.7 %; VBG PCO2 33.9 MMHG (41-51); VBG PH 7.415; VBG PO2 42.9 MMHG (17-40); VBG Total CO2 20.2 MMOL/L
[2021-01-02] MEDS: INSULIN REGULAR 100 UNIT/ML SUBCUT SCH ×2 (11:13→12:06)
[2021-01-02] MEDS: INSULIN GLARGINE 100 UNIT/ML SUBCUT SCH (11:14)
[2021-01-02] MEDS: ASPIRIN CHEW 81 MG TABLET PO SCH (11:14)
[2021-01-02] MEDS: carvediloL 25 MG TABLET PO SCH (11:14)
[2021-01-02] MEDS: metOLazone 5 MG TABLET PO SCH (11:15)
[2021-01-02] MEDS: ASCORBIC ACID 500 MG TABLET PO SCH (11:15)
[2021-01-02] MEDS: CHLORHEXIDINE 0.12% ORAL RINSE 60 ML BOTTLE SWISH/SPIT SCH ×2 (11:15→20:59)
[2021-01-02 11:28] LABS: Hematocrit Heart Surgery 27.6 PERCENT (42-52); Hemoglobin Heart Surgery 8.9 G/DL (14.0-18.0); PH Patient Temp Venous 7.466; PO2 Patient Temp Venous 33.9 MM HG; Potassium Heart/CVR 4.3 MMOL/L (3.5-5.1); VBG Base Excess -2.7 MEQ/L (0-4); VBG HCO3 21.9 MEQ/L (24-28); VBG Oxygen Saturation 79.3 %; VBG PCO2 32.4 MMHG (41-51); VBG PH 7.422; VBG PO2 41.7 MMHG (17-40); VBG Total CO2 19.5 MMOL/L
[2021-01-02] MEDS ORDERED: THROMBIN TOPICAL (RECOMBINANT) 5,000 UNIT VIAL TOP ONE (11:40)
[2021-01-02 12:19] LABS: ABG Base Excess -4.4 MMOL/L (-2.5-2.5); ABG HCO3 20.7 MMOL/L (20-26); ABG Oxygen Saturation 96.7 % (95-100); ABG PCO2 36.2 MM HG (35-48); ABG PH 7.361 (7.35-7.45); ABG PO2 85.7 MM HG (80-95); ABG TCO2 18.7 MMOL/L (23-27); Glucose Heart Surgery 395 MG/DL (74-106); Hematocrit Heart Surgery 30.6 PERCENT (42-52); Hemoglobin Heart Surgery 9.9 G/DL (14.0-18.0); Ionized Calcium Arterial 1.16 MMOL/L (1.21-1.46); PCO2 Patient Temp Arterial 36.2 MMHG; PH Patient Temp Arterial 7.361; PO2 Patient Temp Arterial 85.7 MM HG; Patient Temperature 37 CELCIUS; Potassium Heart/CVR 4.3 MMOL/L (3.5-5.1); Sodium Heart/CVR 129 MMOL/L (135-145)
[2021-01-02] MEDS ORDERED: ALBUMIN 25% 25 GM/100 ML VIAL IV ONE (12:22)
[2021-01-02] MEDS ORDERED: DEXTROSE 5% KCL 20 MEQ 40 MEQ/2,000 ML BAG IV ONE (12:22)
[2021-01-02] MEDS ORDERED: MANNITOL 100 GM/500 ML BAG IV ONE (12:22)
[2021-01-02] MEDS ORDERED: PROTAMINE SULFATE 250 MG/25 ML VIAL IV ONE (12:22)
[2021-01-02] MEDS ORDERED: HEPARIN 10,000 UNIT/10 ML VIAL ONE (12:22)
[2021-01-02] MEDS ORDERED: methylPREDNISolone SOD SUC 1,000 MG/8 ML VIAL ONE (12:22)
[2021-01-02] MEDS ORDERED: SODIUM BICARBONATE 50 MEQ/50 ML VIAL IV ONE ×3 (12:23→23:15)
[2021-01-02] MEDS ORDERED: PROTAMINE SULFATE 50 MG/5 ML VIAL IV ONE ×2 (12:23→14:37)
[2021-01-02] MEDS ORDERED: FUROSEMIDE 20 MG/2 ML VIAL ONE (12:23)
[2021-01-02] MEDS: SODIUM CHLORIDE 0.45% 1,000 ML IV SCH (12:56)
[2021-01-02] MEDS ORDERED: SODIUM CHLORIDE 0.9% 1,000 ML IV PRN (13:00)
[2021-01-02] MEDS ORDERED: ALBUMIN 5% 12.5 GM/250 ML VIAL IV PRN (13:20)
[2021-01-02] MEDS ORDERED: NITROPRUSSIDE 100 MG in DEXTROSE 5% 250 ML IV PRN (13:20)
[2021-01-02] MEDS ORDERED: MAGNESIUM SULF RIDER 2 GM/50 ML PREMIX IV PRN (13:20)
[2021-01-02] MEDS ORDERED: LACTATED RINGERS 250 ML IV PRN (13:20)
[2021-01-02] MEDS ORDERED: ACETAMINOPHEN 650 MG SUPP RECTAL PRN (13:20)
[2021-01-02] MEDS ORDERED: POTASSIUM CHLORIDE RIDER 10 MEQ/100 ML PREMIX IV PRN (13:20)
[2021-01-02] MEDS ORDERED: POTASSIUM CHLORIDE RIDER 20 MEQ/100 ML PREMIX IV PRN (13:20)
[2021-01-02] MEDS ORDERED: CALCIUM CHLORIDE 1,000 MG/10 ML SYRINGE IV PRN (13:20)
[2021-01-02] MEDS ORDERED: MAGNESIUM SULF RIDER 4 GM/100 ML PREMIX IV PRN (13:20)
[2021-01-02] MEDS ORDERED: ONDANSETRON 4 MG/2 ML VIAL IV PRN (13:20)
[2021-01-02] MEDS ORDERED: MIDAZOLAM 2 MG/2 ML VIAL IV PRN (13:20)
[2021-01-02] MEDS ORDERED: MIDAZOLAM 10 MG/2 ML VIAL IV PRN (13:20)
[2021-01-02] MEDS ORDERED: PHENYLEPHRINE DRIP 40 MG/250 ML PREMIX IV PRN (13:20)
[2021-01-02] MEDS ORDERED: VECURONIUM 10 MG VIAL IV PRN ×2 (13:20)
[2021-01-02] MEDS ORDERED: CHLORHEXIDINE 4% SOLN 118 ML BOTTLE TOP PRN (13:20)
[2021-01-02] MEDS ORDERED: MORPHINE 10 MG/1 ML VIAL IV PRN (13:20)
[2021-01-02] MEDS ORDERED: INSULIN REGULAR 100 UNIT/ML IV ONE (13:20)
[2021-01-02] MEDS ORDERED: DEXTROSE 50% 25 GM/50 ML VIAL IV PRN ×2 (13:20)
[2021-01-02] MEDS ORDERED: SODIUM CHLORIDE 0.45% 1,000 ML IV SCH (13:20)
[2021-01-02 13:59] LABS: ABG Base Excess -4.3 MMOL/L (-2.5-2.5); ABG HCO3 20.8 MMOL/L (20-26); ABG Oxygen Saturation 97.5 % (95-100); ABG PCO2 30.9 MM HG (35-48); ABG PO2 86.5 MM HG (80-95); ABG TCO2 18.2 MMOL/L (23-27); Glucose Heart Surgery 372 MG/DL (74-106); Hematocrit Heart Surgery 25.9 PERCENT (42-52); Hemoglobin Heart Surgery 8.3 G/DL (14.0-18.0); Potassium Heart/CVR 4.4 MMOL/L (3.5-5.1)
[2021-01-02 14:03] LABS: Basophils % 0.1 % (0.0-0.8); Eosinophils % 0.3 % (0.00-10.9); Hematocrit 25.7 VOL% (42.0-52.0); Hemoglobin 8.2 GM/DL (14.0-18.0); Immature Granulocytes % 0.9 %; Lymphocytes # 0.4 10*3/uL (1.4-4.0); Lymphocytes % 3.5 % (21.2-54.2); Mean Corpuscular HGB Conc 31.9 GM/DL (32-36); Mean Corpuscular Volume 90.8 FL (87-102); Mean Platelet Volume 10.2 FL (9.6-12.0); Neutrophils % 90.2 % (38.7-73.9); Platelet Count 128 T/CUMM (130-400); Red Blood Count 2.83 MC/CUMM (3.8-5.5); Red Cell Distribution Width 13.5 % (9.3-17.3); White Blood Count 11.8 T/CUMM (4-12)
[2021-01-02 14:16] LABS: INR 1.2; PT Patient Result 13.5 SECS (10.5-12.0); Partial Thromboplastin Time 29.3 SECS (23.9-33.8)
[2021-01-02 14:26] LABS: CKMB % 7.7 %
[2021-01-02 14:34] LABS: Albumin 1.9 G/DL (3.4-5.0); Bilirubin,Total 0.7 MG/DL (0.2-1.0); Calcium 8.1 MG/DL (8.5-10.1); Osmolality,Calculated 295.2 MOS/KG (273-304); Potassium 4.5 MMOL/L (3.5-5.1); Total Protein 5.2 G/DL (6.4-8.2)
[2021-01-02 14:38] LABS: High Sensitive Troponin I* 9401.5 ng/L (0-78)
[2021-01-02 15:46] LABS: Segmented Neutrophils 97 % (50-85); Total Cells Counted 100
[2021-01-02] MEDS: INSULIN REGULAR DRIP 100 ML IV SCH ×2 (16:17→22:59)
[2021-01-02 17:30] LABS: ABG Base Excess -6.9 MMOL/L (-2.5-2.5); ABG HCO3 18.8 MMOL/L (20-26); ABG Oxygen Saturation 98.3 % (95-100); ABG PCO2 33.6 MM HG (35-48); ABG PH 7.339 (7.35-7.45); ABG TCO2 16.4 MMOL/L (23-27); Glucose Heart Surgery 360 MG/DL (74-106); Hematocrit Heart Surgery 33.3 PERCENT (42-52); Hemoglobin Heart Surgery 10.8 G/DL (14.0-18.0); Potassium Heart/CVR 4.4 MMOL/L (3.5-5.1)
[2021-01-02] MEDS: INSULIN REGULAR 100 UNIT/ML IV PRN ×3 (18:20→22:03)
[2021-01-02 19:34] LABS: ABG Base Excess -6.9 MMOL/L (-2.5-2.5); ABG HCO3 18.8 MMOL/L (20-26); ABG Oxygen Saturation 98.9 % (95-100); ABG PCO2 39.4 MM HG (35-48); ABG PH 7.295 (7.35-7.45); ABG TCO2 17.3 MMOL/L (23-27); Glucose Heart Surgery 325 MG/DL (74-106); Hematocrit Heart Surgery 35.5 PERCENT (42-52); Hemoglobin Heart Surgery 11.5 G/DL (14.0-18.0); Potassium Heart/CVR 4.3 MMOL/L (3.5-5.1)
[2021-01-02] MEDS: CEFUROXIME INJ 1,500 MG in SODIUM CHLORIDE 0.9% 100 ML IV SCH (20:58)
[2021-01-02 21:27] LABS: ABG Base Excess -6.5 MMOL/L (-2.5-2.5); ABG HCO3 19.1 MMOL/L (20-26); ABG Oxygen Saturation 98.2 % (95-100); ABG PCO2 38.9 MM HG (35-48); ABG PH 7.305 (7.35-7.45); ABG TCO2 17.5 MMOL/L (23-27); Glucose Heart Surgery 274 MG/DL (74-106); Hematocrit Heart Surgery 34.5 PERCENT (42-52); Hemoglobin Heart Surgery 11.2 G/DL (14.0-18.0); Potassium Heart/CVR 4.3 MMOL/L (3.5-5.1)
[2021-01-02 21:48] LABS: CKMB % 6.4 %
[2021-01-02 21:50] LABS: High Sensitive Troponin I* 17476.5 ng/L (0-78)
[2021-01-02 23:13] LABS: ABG Base Excess -6.9 MMOL/L (-2.5-2.5); ABG HCO3 18.8 MMOL/L (20-26); ABG Oxygen Saturation 98.3 % (95-100); ABG PCO2 40.1 MM HG (35-48); ABG PH 7.291 (7.35-7.45); ABG TCO2 17.4 MMOL/L (23-27); Glucose Heart Surgery 226 MG/DL (74-106); Hematocrit Heart Surgery 36.2 PERCENT (42-52); Hemoglobin Heart Surgery 11.7 G/DL (14.0-18.0); Potassium Heart/CVR 4.2 MMOL/L (3.5-5.1)
[2021-01-03 00:33] LABS: ABG Base Excess -5.8 MMOL/L (-2.5-2.5); ABG HCO3 19.7 MMOL/L (20-26); ABG Oxygen Saturation 98.9 % (95-100); ABG PCO2 34.2 MM HG (35-48); ABG PH 7.352 (7.35-7.45); ABG TCO2 17.1 MMOL/L (23-27); Glucose Heart Surgery 184 MG/DL (74-106); Hematocrit Heart Surgery 34.1 PERCENT (42-52); Hemoglobin Heart Surgery 11.1 G/DL (14.0-18.0); Potassium Heart/CVR 4.1 MMOL/L (3.5-5.1)
[2021-01-03 02:30] LABS: ABG Base Excess -6.3 MMOL/L (-2.5-2.5); ABG HCO3 19.3 MMOL/L (20-26); ABG Oxygen Saturation 98.1 % (95-100); ABG PCO2 39.4 MM HG (35-48); ABG PH 7.306 (7.35-7.45); ABG TCO2 17.9 MMOL/L (23-27); Glucose Heart Surgery 130 MG/DL (74-106); Hematocrit Heart Surgery 33.3 PERCENT (42-52); Hemoglobin Heart Surgery 10.8 G/DL (14.0-18.0); Potassium Heart/CVR 3.9 MMOL/L (3.5-5.1)
[2021-01-03] MEDS: MORPHINE 4 MG/1 ML VIAL IV PRN ×2 (03:31→08:51)
[2021-01-03 03:47] LABS: ABG Base Excess -5.7 MMOL/L (-2.5-2.5); ABG HCO3 19.7 MMOL/L (20-26); ABG Oxygen Saturation 98.1 % (95-100); ABG PH 7.297 (7.35-7.45); ABG TCO2 18.6 MMOL/L (23-27); Glucose Heart Surgery 102 MG/DL (74-106)
[2021-01-03 03:54] LABS: Basophils % 0.1 % (0.0-0.8); Hematocrit 32.1 VOL% (42.0-52.0); Immature Granulocytes % 0.4 %; Immature Granulocytes Absolute 0.07 #; Lymphocytes # 0.7 10*3/uL (1.4-4.0); Lymphocytes % 4.4 % (21.2-54.2); Mean Corpuscular HGB Conc 33.3 GM/DL (32-36); Mean Corpuscular Volume 90.4 FL (87-102); Mean Platelet Volume 11.3 FL (9.6-12.0); Monocytes % 5.3 % (1.7-12.7); Neutrophils % 89.8 % (38.7-73.9); Red Cell Distribution Width 13.9 % (9.3-17.3)
[2021-01-03 03:55] LABS: Hemoglobin 10.7 GM/DL (14.0-18.0); Red Blood Count 3.55 MC/CUMM (3.8-5.5); White Blood Count 15.7 T/CUMM (4-12)
[2021-01-03 03:56] LABS: Platelet Count 153 T/CUMM (130-400)
[2021-01-03] MEDS ORDERED: SODIUM BICARBONATE 50 MEQ/50 ML VIAL IV ONE (04:03)
[2021-01-03 04:10] LABS: Albumin 2.4 G/DL (3.4-5.0); Bilirubin,Direct 0.23 MG/DL (0.0-0.20); Bilirubin,Total 0.4 MG/DL (0.2-1.0); Osmolality,Calculated 289.7 MOS/KG (273-304); Potassium 4.1 MMOL/L (3.5-5.1); Total Protein 6.3 G/DL (6.4-8.2)
[2021-01-03 04:12] LABS: Band Neutrophils 2 % (0-10); Hypochromasia Slight; Lymphocytes 3 % (20-55); Segmented Neutrophils 91 % (50-85); Total Cells Counted 100
[2021-01-03 04:13] LABS: Microcytosis 1+; Ovalocytes Slight; Platelet Estimate Adequate
[2021-01-03 04:24] LABS: CKMB % 6.6 %
[2021-01-03 04:25] LABS: High Sensitive Troponin I* 32393.1 ng/L (0-78)
[2021-01-03 06:21] LABS: ABG Base Excess -4.6 MMOL/L (-2.5-2.5); ABG HCO3 20.4 MMOL/L (20-26); ABG Oxygen Saturation 97.5 % (95-100); ABG PCO2 37.6 MM HG (35-48); ABG PH 7.353 (7.35-7.45); ABG PO2 105.3 MM HG (80-95); ABG TCO2 21.6 MMOL/L (23-27); Glucose Heart Surgery 113 MG/DL (74-106); Hemoglobin Heart Surgery 11.1 G/DL (14.0-18.0); Potassium Heart/CVR 4.5 MMOL/L (3.5-5.1)
[2021-01-03 07:14] LABS: ABG Base Excess -4.9 MMOL/L (-2.5-2.5); ABG HCO3 20.4 MMOL/L (20-26); ABG Oxygen Saturation 98.1 % (95-100); ABG PH 7.318 (7.35-7.45); ABG TCO2 19.1 MMOL/L (23-27); Glucose Heart Surgery 117 MG/DL (74-106); Hematocrit Heart Surgery 33.3 PERCENT (42-52); Hemoglobin Heart Surgery 10.8 G/DL (14.0-18.0)
[2021-01-03] MEDS ORDERED: ALTEPLASE 2 MG VIAL IV ONE ×2 (09:00)
[2021-01-03] MEDS: CHLORHEXIDINE 0.12% ORAL RINSE 60 ML BOTTLE SWISH/SPIT SCH ×2 (09:07→21:00)
[2021-01-03] MEDS: CEFUROXIME INJ 1,500 MG in SODIUM CHLORIDE 0.9% 100 ML IV SCH ×2 (09:16→21:00)
[2021-01-03] MEDS: INSULIN GLARGINE 100 UNIT/ML SUBCUT SCH (10:40)
[2021-01-03] MEDS: INSULIN REGULAR 100 UNIT/ML SUBCUT SCH ×3 (12:22→21:00)
[2021-01-03 13:34] LABS: ABG Base Excess -6.1 MMOL/L (-2.5-2.5); ABG HCO3 19.4 MMOL/L (20-26); ABG Oxygen Saturation 97.8 % (95-100); ABG PCO2 40.1 MM HG (35-48); ABG PH 7.304 (7.35-7.45); Glucose Heart Surgery 163 MG/DL (74-106); Hematocrit Heart Surgery 35.7 PERCENT (42-52); Hemoglobin Heart Surgery 11.6 G/DL (14.0-18.0); Potassium Heart/CVR 4.5 MMOL/L (3.5-5.1)
[2021-01-03] MEDS: SODIUM CHLORIDE 0.45% 1,000 ML IV SCH (14:07)
[2021-01-03 15:33] LABS: CKMB % 5.7 %
[2021-01-03 15:40] LABS: High Sensitive Troponin I* 37744.7 ng/L (0-78)
[2021-01-03 16:37] LABS: ABG Base Excess -6.5 MMOL/L (-2.5-2.5); ABG HCO3 18.4 MMOL/L (20-26); ABG Oxygen Saturation 96.8 % (95-100); ABG PCO2 34.9 MM HG (35-48); ABG PH 7.341 (7.35-7.45); ABG PO2 94.5 MM HG (80-95); ABG TCO2 19.5 MMOL/L (23-27); Glucose Heart Surgery 152 MG/DL (74-106); Hemoglobin Heart Surgery 10.9 G/DL (14.0-18.0); Potassium Heart/CVR 4.7 MMOL/L (3.5-5.1)
[2021-01-03] MEDS ORDERED: HEPARIN 10,000 UNIT/10 ML VIAL IV ONE (17:30)
[2021-01-03] MEDS ORDERED: HEPARIN/NACL 0.9% 2 UNITS/ML 1,000 UNIT/500 ML BAG IV ONE (21:15)
[2021-01-04] MEDS: INSULIN REGULAR 100 UNIT/ML SUBCUT SCH ×6 (00:45→20:54)
[2021-01-04 05:19] LABS: ABG Base Excess -6.4 MMOL/L (-2.5-2.5); ABG HCO3 19.2 MMOL/L (20-26); ABG Oxygen Saturation 97.5 % (95-100); ABG PCO2 43.2 MM HG (35-48); ABG PH 7.277 (7.35-7.45); ABG TCO2 18.7 MMOL/L (23-27)
[2021-01-04 05:37] LABS: Basophils % 0.1 % (0.0-0.8); Hematocrit 30.3 VOL% (42.0-52.0); Hemoglobin 9.8 GM/DL (14.0-18.0); Immature Granulocytes % 0.6 %; Immature Granulocytes Absolute 0.11 #; Lymphocytes # 1.5 10*3/uL (1.4-4.0); Lymphocytes % 7.4 % (21.2-54.2); Mean Corpuscular HGB Conc 32.3 GM/DL (32-36); Mean Corpuscular Volume 93.5 FL (87-102); Mean Platelet Volume 11.9 FL (9.6-12.0); Monocytes % 9.4 % (1.7-12.7); Neutrophils % 82.5 % (38.7-73.9); Platelet Count 131 T/CUMM (130-400); Red Blood Count 3.24 MC/CUMM (3.8-5.5); Red Cell Distribution Width 14.2 % (9.3-17.3); White Blood Count 19.7 T/CUMM (4-12)
[2021-01-04 05:57] LABS: Albumin 2.1 G/DL (3.4-5.0); Bilirubin,Direct 0.12 MG/DL (0.0-0.20); Bilirubin,Total 0.7 MG/DL (0.2-1.0); Calcium 8.4 MG/DL (8.5-10.1); Potassium 5.2 MMOL/L (3.5-5.1); Total Protein 5.9 G/DL (6.4-8.2)
[2021-01-04] MEDS ORDERED: SODIUM BICARBONATE 50 MEQ/50 ML VIAL IV PRN (07:20)
[2021-01-04] MEDS ORDERED: SODIUM BICARBONATE 50 MEQ/50 ML VIAL IV ONE (07:20)
[2021-01-04] MEDS: carvediloL 3.125 MG TABLET PO SCH ×2 (10:00→20:55)
[2021-01-04] MEDS: CHLORHEXIDINE 0.12% ORAL RINSE 60 ML BOTTLE SWISH/SPIT SCH ×2 (10:00→20:55)
[2021-01-04] MEDS: INSULIN GLARGINE 100 UNIT/ML SUBCUT SCH (10:00)
[2021-01-04] MEDS: ASPIRIN EC 325 MG TABLET PO SCH (10:00)
[2021-01-04] MEDS: PANTOPRAZOLE 40 MG TABLET PO SCH (10:00)
[2021-01-04] MEDS ORDERED: DEXTROSE 50% 25 GM/50 ML VIAL IV PRN (10:27)
[2021-01-04] MEDS ORDERED: GLUCAGON 1 MG VIAL IM PRN (10:27)
[2021-01-04] MEDS: ATORVASTATIN 40 MG TABLET PO SCH (20:55)
[2021-01-05] MEDS: INSULIN REGULAR 100 UNIT/ML SUBCUT SCH ×6 (00:02→20:38)
[2021-01-05 05:01] LABS: Basophils % 0.1 % (0.0-0.8); Eosinophils % 0.2 % (0.00-10.9); Hematocrit 28.8 VOL% (42.0-52.0); Hemoglobin 9.2 GM/DL (14.0-18.0); Immature Granulocytes % 0.6 %; Immature Granulocytes Absolute 0.09 #; Lymphocytes # 1.4 10*3/uL (1.4-4.0); Lymphocytes % 9.1 % (21.2-54.2); Mean Corpuscular HGB Conc 31.9 GM/DL (32-36); Mean Corpuscular Volume 93.2 FL (87-102); Mean Platelet Volume 11.6 FL (9.6-12.0); Monocytes % 11.7 % (1.7-12.7); Neutrophils % 78.3 % (38.7-73.9); Platelet Count 140 T/CUMM (130-400); Red Blood Count 3.09 MC/CUMM (3.8-5.5); White Blood Count 14.9 T/CUMM (4-12)
[2021-01-05 05:24] LABS: Alanine Aminotransferase 13 U/L (16-61); Albumin 2.1 G/DL (3.4-5.0); Alkaline Phosphatase 139 U/L (45-117); Aspartate Amino Transferase 15 U/L (0-37); Bilirubin,Direct < 0.100 MG/DL (0.0-0.20); Bilirubin,Total < 0.39 MG/DL (0.2-1.0); Blood Urea Nitrogen 84 MG/DL (7-18); Calcium 7.9 MG/DL (8.5-10.1); Carbon Dioxide 21 MMOL/L (21-32); Estimated Glom Filtration Rate 10 ML/MIN; Glucose 167 MG/DL (74-106); Osmolality,Calculated 299.1 MOS/KG (273-304); Potassium 4.5 MMOL/L (3.5-5.1); Sodium 135 MMOL/L (136-145); Total Protein 6.1 G/DL (6.4-8.2)
[2021-01-05 05:44] LABS: Calcium 7.7 MG/DL (8.5-10.1); Potassium 4.4 MMOL/L (3.5-5.1)
[2021-01-05] MEDS: ASPIRIN EC 325 MG TABLET PO SCH (08:36)
[2021-01-05] MEDS: ASCORBIC ACID 500 MG TABLET PO SCH ×2 (08:36→20:41)
[2021-01-05] MEDS: PANTOPRAZOLE 40 MG TABLET PO SCH (08:36)
[2021-01-05] MEDS: carvediloL 3.125 MG TABLET PO SCH ×2 (08:36→20:41)
[2021-01-05] MEDS: ISOSORBIDE MONONITRATE 30 MG TABLET PO SCH (08:36)
[2021-01-05] MEDS: hydrALAZINE 25 MG TABLET PO SCH ×3 (08:36→20:41)
[2021-01-05] MEDS: INSULIN GLARGINE 100 UNIT/ML SUBCUT SCH (08:37)
[2021-01-05] MEDS: CHLORHEXIDINE 0.12% ORAL RINSE 60 ML BOTTLE SWISH/SPIT SCH ×2 (08:37→20:41)
[2021-01-05] MEDS ORDERED: carvediloL 3.125 MG TABLET PO SCH (09:00)
[2021-01-05] MEDS ORDERED: ALUMINUM/MAGNES/SIMETH MAX STR 30 ML UDCUP PO PRN (11:14)
[2021-01-05] MEDS ORDERED: MAGNESIUM SULF RIDER 4 GM/100 ML PREMIX IV PRN (11:14)
[2021-01-05] MEDS ORDERED: GLUCAGON 1 MG VIAL IM PRN (11:14)
[2021-01-05] MEDS ORDERED: MAGNESIUM HYDROXIDE SUSP 30 ML UDCUP PO PRN (11:14)
[2021-01-05] MEDS ORDERED: ZALEPLON 5 MG CAPSULE PO PRN (11:14)
[2021-01-05] MEDS ORDERED: ONDANSETRON 4 MG/2 ML VIAL IV PRN (11:14)
[2021-01-05] MEDS ORDERED: DEXTROSE 50% 25 GM/50 ML VIAL IV PRN (11:14)
[2021-01-05] MEDS ORDERED: ACETAMINOPHEN 325 MG TABLET PO PRN (11:14)
[2021-01-05] MEDS ORDERED: MAGNESIUM SULF RIDER 2 GM/50 ML PREMIX IV PRN (11:14)
[2021-01-05] MEDS ORDERED: POTASSIUM CHLORIDE 20 MEQ TABLET PO PRN (11:14)
[2021-01-05] MEDS: ATORVASTATIN 40 MG TABLET PO SCH (20:41)
[2021-01-05] MEDS: allopurinoL 100 MG TABLET PO SCH (20:45)
[2021-01-06] MEDS: INSULIN REGULAR 100 UNIT/ML SUBCUT SCH ×6 (00:13→21:19)
[2021-01-06] MEDS ORDERED: FUROSEMIDE 40 MG/4 ML VIAL IV ONE (06:00)
[2021-01-06 06:26] LABS: Eosinophils % 0.9 % (0.00-10.9); Lymphocytes % 12.9 % (21.2-54.2)
[2021-01-06 06:30] LABS: Basophils % 0.1 % (0.0-0.8); Eosinophils # 0.1 10*3/uL (0.0-0.87); Hematocrit 22.9 VOL% (42.0-52.0); Immature Granulocytes % 0.4 %; Immature Granulocytes Absolute 0.04 #; Lymphocytes # 1.4 10*3/uL (1.4-4.0); Mean Corpuscular HGB Conc 31.9 GM/DL (32-36); Mean Corpuscular Volume 93.1 FL (87-102); Mean Platelet Volume 11.3 FL (9.6-12.0); Monocytes % 11.1 % (1.7-12.7); NRBC # 0.02 10*3/uL; Neutrophils % 74.6 % (38.7-73.9); Platelet Count 152 T/CUMM (130-400); Red Blood Count 2.46 MC/CUMM (3.8-5.5); Red Cell Distribution Width 13.8 % (9.3-17.3); White Blood Count 10.6 T/CUMM (4-12)
[2021-01-06 06:31] LABS: Hemoglobin 7.3 GM/DL (14.0-18.0)
[2021-01-06 06:46] LABS: Alanine Aminotransferase 9 U/L (16-61); Albumin 1.9 G/DL (3.4-5.0); Alkaline Phosphatase 142 U/L (45-117); Aspartate Amino Transferase 10 U/L (0-37); Bilirubin,Indirect 0.3 MG/DL (0.0-1.0); Bilirubin,Total < 0.39 MG/DL (0.2-1.0); Blood Urea Nitrogen 84 MG/DL (7-18); Calcium 7.6 MG/DL (8.5-10.1); Carbon Dioxide 23 MMOL/L (21-32); Estimated Glom Filtration Rate 10 ML/MIN; Glucose 221 MG/DL (74-106); Osmolality,Calculated 298.4 MOS/KG (273-304); Potassium 3.8 MMOL/L (3.5-5.1); Sodium 133 MMOL/L (136-145); Total Protein 5.9 G/DL (6.4-8.2)
[2021-01-06] MEDS ORDERED: SODIUM CHLORIDE 0.9% 1,000 ML IV PRN (08:17)
[2021-01-06] MEDS ORDERED: glipiZIDE 5 MG TABLET PO SCH (09:00)
[2021-01-06] MEDS ORDERED: HEPARIN 10,000 UNIT/10 ML VIAL IV SCH (10:15)
[2021-01-06] MEDS: hydrALAZINE 25 MG TABLET PO SCH ×3 (10:49→21:20)
[2021-01-06] MEDS: ISOSORBIDE MONONITRATE 30 MG TABLET PO SCH (10:50)
[2021-01-06] MEDS: ASPIRIN EC 325 MG TABLET PO SCH (10:50)
[2021-01-06] MEDS: FERROUS SULFATE 325 MG TABLET PO SCH (10:50)
[2021-01-06] MEDS: CHLORHEXIDINE 0.12% ORAL RINSE 60 ML BOTTLE SWISH/SPIT SCH ×2 (10:50→21:21)
[2021-01-06] MEDS: ASCORBIC ACID 500 MG TABLET PO SCH ×2 (10:50→21:20)
[2021-01-06] MEDS: carvediloL 3.125 MG TABLET PO SCH (10:50)
[2021-01-06] MEDS: DOCUSATE SODIUM 100 MG CAPSULE PO SCH (10:50)
[2021-01-06] MEDS: allopurinoL 100 MG TABLET PO SCH ×2 (10:50→21:20)
[2021-01-06] MEDS: INSULIN GLARGINE 100 UNIT/ML SUBCUT SCH (10:50)
[2021-01-06] MEDS: PANTOPRAZOLE 40 MG TABLET PO SCH (10:50)
[2021-01-06 13:28] LABS: Hematocrit 34.3 VOL% (42.0-52.0); Hemoglobin 11.1 GM/DL (14.0-18.0)
[2021-01-06] MEDS: oxyCODONE/ACETAMINOPHEN 5-325 MG TABLET PO PRN (21:20)
[2021-01-06] MEDS: ATORVASTATIN 40 MG TABLET PO SCH (21:20)
[2021-01-06] MEDS: carvediloL 6.25 MG TABLET PO SCH (21:20)
[2021-01-07] MEDS: INSULIN REGULAR 100 UNIT/ML SUBCUT SCH ×6 (00:16→21:09)
[2021-01-07 06:39] LABS: Basophils % 0.2 % (0.0-0.8); Eosinophils # 0.1 10*3/uL (0.0-0.87); Eosinophils % 1.4 % (0.00-10.9); Hematocrit 31.7 VOL% (42.0-52.0); Hemoglobin 10.3 GM/DL (14.0-18.0); Immature Granulocytes % 0.6 %; Immature Granulocytes Absolute 0.06 #; Lymphocytes # 1.2 10*3/uL (1.4-4.0); Lymphocytes % 11.7 % (21.2-54.2); Mean Corpuscular HGB Conc 32.5 GM/DL (32-36); Mean Corpuscular Volume 91.6 FL (87-102); Mean Platelet Volume 10.3 FL (9.6-12.0); Neutrophils % 72.1 % (38.7-73.9); Platelet Count 226 T/CUMM (130-400); Red Blood Count 3.46 MC/CUMM (3.8-5.5); Red Cell Distribution Width 13.7 % (9.3-17.3); White Blood Count 10.1 T/CUMM (4-12)
[2021-01-07 06:58] LABS: Calcium 7.8 MG/DL (8.5-10.1); Osmolality,Calculated 295.8 MOS/KG (273-304); Potassium 3.5 MMOL/L (3.5-5.1)
[2021-01-07 07:04] LABS: Alanine Aminotransferase 12 U/L (16-61); Albumin 1.9 G/DL (3.4-5.0); Alkaline Phosphatase 148 U/L (45-117); Aspartate Amino Transferase 9 U/L (0-37); Bilirubin,Indirect 0.4 MG/DL (0.0-1.0); Blood Urea Nitrogen 60 MG/DL (7-18); Calcium 7.7 MG/DL (8.5-10.1); Carbon Dioxide 23 MMOL/L (21-32); Estimated Glom Filtration Rate 14 ML/MIN; Glucose 199 MG/DL (74-106); Potassium 3.5 MMOL/L (3.5-5.1); Sodium 136 MMOL/L (136-145); Total Protein 6.3 G/DL (6.4-8.2)
[2021-01-07] MEDS: POLYETHYLENE GLYCOL POWDER 17 GM PACK PO SCH (09:02)
[2021-01-07] MEDS: INSULIN GLARGINE 100 UNIT/ML SUBCUT SCH (09:04)
[2021-01-07] MEDS: ASCORBIC ACID 500 MG TABLET PO SCH ×2 (09:05→21:07)
[2021-01-07] MEDS: allopurinoL 100 MG TABLET PO SCH ×2 (09:05→21:08)
[2021-01-07] MEDS: PANTOPRAZOLE 40 MG TABLET PO SCH (09:05)
[2021-01-07] MEDS: ASPIRIN EC 325 MG TABLET PO SCH (09:05)
[2021-01-07] MEDS: glipiZIDE 10 MG TABLET PO SCH ×2 (09:05→18:29)
[2021-01-07] MEDS: carvediloL 6.25 MG TABLET PO SCH ×2 (09:06→21:08)
[2021-01-07] MEDS: DOCUSATE SODIUM 100 MG CAPSULE PO SCH (09:06)
[2021-01-07] MEDS: CHLORHEXIDINE 0.12% ORAL RINSE 60 ML BOTTLE SWISH/SPIT SCH ×2 (09:06→21:09)
[2021-01-07] MEDS: ISOSORBIDE MONONITRATE 30 MG TABLET PO SCH (09:06)
[2021-01-07] MEDS: FERROUS SULFATE 325 MG TABLET PO SCH (09:06)
[2021-01-07] MEDS: hydrALAZINE 25 MG TABLET PO SCH ×3 (09:10→21:07)
[2021-01-07] MEDS: ATORVASTATIN 40 MG TABLET PO SCH (21:08)
[2021-01-08] MEDS: INSULIN REGULAR 100 UNIT/ML SUBCUT SCH ×6 (00:33→21:43)
[2021-01-08 06:14] LABS: Basophils % 0.3 % (0.0-0.8); Eosinophils # 0.3 10*3/uL (0.0-0.87); Eosinophils % 2.8 % (0.00-10.9); Hematocrit 31.1 VOL% (42.0-52.0); Hemoglobin 10.2 GM/DL (14.0-18.0); Immature Granulocytes % 0.4 %; Immature Granulocytes Absolute 0.04 #; Lymphocytes # 1.3 10*3/uL (1.4-4.0); Mean Corpuscular HGB Conc 32.8 GM/DL (32-36); Mean Platelet Volume 9.9 FL (9.6-12.0); Monocytes % 14.4 % (1.7-12.7); Neutrophils % 69.1 % (38.7-73.9); Platelet Count 256 T/CUMM (130-400); Red Blood Count 3.38 MC/CUMM (3.8-5.5); Red Cell Distribution Width 13.9 % (9.3-17.3); White Blood Count 9.9 T/CUMM (4-12)
[2021-01-08 06:32] LABS: Osmolality,Calculated 286.8 MOS/KG (273-304); Potassium 3.4 MMOL/L (3.5-5.1)
[2021-01-08] MEDS ORDERED: POTASSIUM CHLORIDE 8 MEQ CAPSULE PO ONE (07:45)
[2021-01-08] MEDS ORDERED: INSULIN GLARGINE 100 UNIT/ML SUBCUT SCH (09:00)
[2021-01-08] MEDS: DOCUSATE SODIUM 100 MG CAPSULE PO SCH (09:43)
[2021-01-08] MEDS: ASPIRIN EC 325 MG TABLET PO SCH (09:43)
[2021-01-08] MEDS: POLYETHYLENE GLYCOL POWDER 17 GM PACK PO SCH (09:43)
[2021-01-08] MEDS: PANTOPRAZOLE 40 MG TABLET PO SCH (09:43)
[2021-01-08] MEDS: glipiZIDE 10 MG TABLET PO SCH ×2 (09:43→17:35)
[2021-01-08] MEDS: ISOSORBIDE MONONITRATE 30 MG TABLET PO SCH (09:43)
[2021-01-08] MEDS: hydrALAZINE 25 MG TABLET PO SCH ×3 (09:44→21:42)
[2021-01-08] MEDS: FERROUS SULFATE 325 MG TABLET PO SCH (09:44)
[2021-01-08] MEDS: ASCORBIC ACID 500 MG TABLET PO SCH ×2 (09:44→21:41)
[2021-01-08] MEDS: allopurinoL 100 MG TABLET PO SCH ×2 (09:44→21:42)
[2021-01-08] MEDS: carvediloL 6.25 MG TABLET PO SCH (09:47)
[2021-01-08] MEDS: CHLORHEXIDINE 0.12% ORAL RINSE 60 ML BOTTLE SWISH/SPIT SCH ×2 (09:48→21:43)
[2021-01-08] MEDS ORDERED: carvediloL 6.25 MG TABLET PO ONE (10:38)
[2021-01-08] MEDS ORDERED: INSULIN GLARGINE 100 UNIT/ML SUBCUT ONE (18:03)
[2021-01-08] MEDS: oxyCODONE/ACETAMINOPHEN 5-325 MG TABLET PO PRN (21:41)
[2021-01-08] MEDS: ATORVASTATIN 40 MG TABLET PO SCH (21:42)
[2021-01-08] MEDS: carvediloL 12.5 MG TABLET PO SCH (21:42)
[2021-01-09] MEDS: INSULIN REGULAR 100 UNIT/ML SUBCUT SCH ×6 (00:55→21:30)
[2021-01-09 05:48] LABS: Basophils % 0.3 % (0.0-0.8); Eosinophils # 0.3 10*3/uL (0.0-0.87); Eosinophils % 2.8 % (0.00-10.9); Hematocrit 29.9 VOL% (42.0-52.0); Hemoglobin 9.8 GM/DL (14.0-18.0); Immature Granulocytes % 0.5 %; Immature Granulocytes Absolute 0.05 #; Lymphocytes # 1.4 10*3/uL (1.4-4.0); Lymphocytes % 14.4 % (21.2-54.2); Mean Corpuscular HGB Conc 32.8 GM/DL (32-36); Mean Platelet Volume 10.1 FL (9.6-12.0); Monocytes % 14.9 % (1.7-12.7); Neutrophils % 67.1 % (38.7-73.9); Platelet Count 284 T/CUMM (130-400); Red Blood Count 3.25 MC/CUMM (3.8-5.5); Red Cell Distribution Width 13.9 % (9.3-17.3); White Blood Count 9.7 T/CUMM (4-12)
[2021-01-09 06:08] LABS: Osmolality,Calculated 284.1 MOS/KG (273-304); Potassium 3.4 MMOL/L (3.5-5.1)
[2021-01-09 06:23] LABS: Alanine Aminotransferase 26 U/L (16-61); Albumin 1.9 G/DL (3.4-5.0); Alkaline Phosphatase 158 U/L (45-117); Aspartate Amino Transferase 23 U/L (0-37); Bilirubin,Indirect 0.3 MG/DL (0.0-1.0); Bilirubin,Total < 0.39 MG/DL (0.2-1.0); Blood Urea Nitrogen 48 MG/DL (7-18); Calcium 7.8 MG/DL (8.5-10.1); Carbon Dioxide 25 MMOL/L (21-32); Estimated Glom Filtration Rate 16 ML/MIN; Glucose 156 MG/DL (74-106); Osmolality,Calculated 290.7 MOS/KG (273-304); Potassium 3.5 MMOL/L (3.5-5.1); Sodium 138 MMOL/L (136-145); Total Protein 6.2 G/DL (6.4-8.2)
[2021-01-09] MEDS ORDERED: INSULIN GLARGINE 100 UNIT/ML SUBCUT SCH (09:00)
[2021-01-09] MEDS ORDERED: POTASSIUM CHLORIDE 20 MEQ TABLET PO ONE (09:43)
[2021-01-09] MEDS: INSULIN GLARGINE 100 UNIT/ML SUBCUT SCH (09:58)
[2021-01-09] MEDS: DOCUSATE SODIUM 100 MG CAPSULE PO SCH (11:42)
[2021-01-09] MEDS: PANTOPRAZOLE 40 MG TABLET PO SCH (11:42)
[2021-01-09] MEDS: glipiZIDE 10 MG TABLET PO SCH ×2 (11:42→15:58)
[2021-01-09] MEDS: ISOSORBIDE MONONITRATE 30 MG TABLET PO SCH (11:42)
[2021-01-09] MEDS: allopurinoL 100 MG TABLET PO SCH ×2 (11:43→21:29)
[2021-01-09] MEDS: ASCORBIC ACID 500 MG TABLET PO SCH ×2 (11:43→21:29)
[2021-01-09] MEDS: CHLORHEXIDINE 0.12% ORAL RINSE 60 ML BOTTLE SWISH/SPIT SCH ×2 (11:43→21:30)
[2021-01-09] MEDS: ASPIRIN EC 325 MG TABLET PO SCH (11:43)
[2021-01-09] MEDS: FERROUS SULFATE 325 MG TABLET PO SCH (11:43)
[2021-01-09] MEDS: carvediloL 12.5 MG TABLET PO SCH ×2 (11:43→21:29)
[2021-01-09] MEDS: POLYETHYLENE GLYCOL POWDER 17 GM PACK PO SCH (11:44)
[2021-01-09] MEDS: hydrALAZINE 25 MG TABLET PO SCH (11:47)
[2021-01-09] MEDS: oxyCODONE/ACETAMINOPHEN 5-325 MG TABLET PO PRN (18:36)
[2021-01-09] MEDS: ATORVASTATIN 40 MG TABLET PO SCH (21:29)
[2021-01-10] MEDS: INSULIN REGULAR 100 UNIT/ML SUBCUT SCH ×6 (00:08→20:30)
[2021-01-10 05:36] LABS: Basophils % 0.2 % (0.0-0.8); Eosinophils # 0.2 10*3/uL (0.0-0.87); Eosinophils % 2.4 % (0.00-10.9); Hematocrit 31.2 VOL% (42.0-52.0); Immature Granulocytes % 0.5 %; Immature Granulocytes Absolute 0.05 #; Lymphocytes # 1.3 10*3/uL (1.4-4.0); Lymphocytes % 13.3 % (21.2-54.2); Mean Corpuscular HGB Conc 32.1 GM/DL (32-36); Mean Corpuscular Volume 93.7 FL (87-102); Monocytes % 11.9 % (1.7-12.7); Neutrophils % 71.7 % (38.7-73.9); Platelet Count 310 T/CUMM (130-400); Red Blood Count 3.33 MC/CUMM (3.8-5.5); Red Cell Distribution Width 13.9 % (9.3-17.3); White Blood Count 10.1 T/CUMM (4-12)
[2021-01-10 05:46] LABS: Calcium 8.3 MG/DL (8.5-10.1); Osmolality,Calculated 277.4 MOS/KG (273-304); Potassium 3.5 MMOL/L (3.5-5.1)
[2021-01-10 05:54] LABS: Alanine Aminotransferase 32 U/L (16-61); Alkaline Phosphatase 178 U/L (45-117); Aspartate Amino Transferase 21 U/L (0-37); Bilirubin,Direct < 0.100 MG/DL (0.0-0.20); Bilirubin,Indirect 0.3 MG/DL (0.0-1.0); Bilirubin,Total < 0.39 MG/DL (0.2-1.0); Blood Urea Nitrogen 38 MG/DL (7-18); Calcium 8.2 MG/DL (8.5-10.1); Carbon Dioxide 24 MMOL/L (21-32); Estimated Glom Filtration Rate 20 ML/MIN; Glucose 159 MG/DL (74-106); Potassium 3.6 MMOL/L (3.5-5.1); Sodium 136 MMOL/L (136-145); Total Protein 6.6 G/DL (6.4-8.2)
[2021-01-10] MEDS: PANTOPRAZOLE 40 MG TABLET PO SCH (09:01)
[2021-01-10] MEDS: DOCUSATE SODIUM 100 MG CAPSULE PO SCH (09:01)
[2021-01-10] MEDS: allopurinoL 100 MG TABLET PO SCH ×2 (09:01→20:29)
[2021-01-10] MEDS: FERROUS SULFATE 325 MG TABLET PO SCH (09:02)
[2021-01-10] MEDS: ASCORBIC ACID 500 MG TABLET PO SCH ×2 (09:02→20:29)
[2021-01-10] MEDS: ISOSORBIDE MONONITRATE 30 MG TABLET PO SCH (09:02)
[2021-01-10] MEDS: POLYETHYLENE GLYCOL POWDER 17 GM PACK PO SCH (09:02)
[2021-01-10] MEDS: ASPIRIN EC 325 MG TABLET PO SCH (09:02)
[2021-01-10] MEDS: carvediloL 12.5 MG TABLET PO SCH ×2 (09:02→20:29)
[2021-01-10] MEDS: glipiZIDE 10 MG TABLET PO SCH ×2 (09:02→16:10)
[2021-01-10] MEDS: CHLORHEXIDINE 0.12% ORAL RINSE 60 ML BOTTLE SWISH/SPIT SCH ×2 (09:03→20:29)
[2021-01-10] MEDS: INSULIN GLARGINE 100 UNIT/ML SUBCUT SCH (09:03)
[2021-01-10] MEDS: oxyCODONE/ACETAMINOPHEN 5-325 MG TABLET PO PRN (09:09)
[2021-01-10] MEDS: ATORVASTATIN 40 MG TABLET PO SCH (20:29)
[2021-01-11] MEDS: INSULIN REGULAR 100 UNIT/ML SUBCUT SCH ×6 (00:19→21:52)
[2021-01-11] MEDS: oxyCODONE/ACETAMINOPHEN 5-325 MG TABLET PO PRN (04:05)
[2021-01-11 05:49] LABS: Basophils % 0.2 % (0.0-0.8); Eosinophils # 0.2 10*3/uL (0.0-0.87); Eosinophils % 1.9 % (0.00-10.9); Hematocrit 30.1 VOL% (42.0-52.0); Immature Granulocytes % 0.5 %; Immature Granulocytes Absolute 0.04 #; Lymphocytes # 1.2 10*3/uL (1.4-4.0); Lymphocytes % 14.3 % (21.2-54.2); Mean Corpuscular HGB Conc 33.2 GM/DL (32-36); Mean Corpuscular Volume 91.2 FL (87-102); Mean Platelet Volume 9.8 FL (9.6-12.0); Monocytes % 10.9 % (1.7-12.7); Neutrophils % 72.2 % (38.7-73.9); Platelet Count 314 T/CUMM (130-400); White Blood Count 8.1 T/CUMM (4-12)
[2021-01-11 06:01] LABS: Calcium 8.4 MG/DL (8.5-10.1); Osmolality,Calculated 285.2 MOS/KG (273-304); Potassium 3.6 MMOL/L (3.5-5.1)
[2021-01-11] MEDS: INSULIN GLARGINE 100 UNIT/ML SUBCUT SCH (10:13)
[2021-01-11] MEDS: ASPIRIN EC 325 MG TABLET PO SCH (10:14)
[2021-01-11] MEDS: glipiZIDE 10 MG TABLET PO SCH ×2 (10:14→17:33)
[2021-01-11] MEDS: DOCUSATE SODIUM 100 MG CAPSULE PO SCH (10:14)
[2021-01-11] MEDS: ASCORBIC ACID 500 MG TABLET PO SCH ×2 (10:15→21:51)
[2021-01-11] MEDS: ISOSORBIDE MONONITRATE 30 MG TABLET PO SCH (10:15)
[2021-01-11] MEDS: POLYETHYLENE GLYCOL POWDER 17 GM PACK PO SCH (10:15)
[2021-01-11] MEDS: FERROUS SULFATE 325 MG TABLET PO SCH (10:15)
[2021-01-11] MEDS: carvediloL 12.5 MG TABLET PO SCH ×2 (10:15→21:52)
[2021-01-11] MEDS: CHLORHEXIDINE 0.12% ORAL RINSE 60 ML BOTTLE SWISH/SPIT SCH ×2 (10:15→21:52)
[2021-01-11] MEDS: PANTOPRAZOLE 40 MG TABLET PO SCH (10:15)
[2021-01-11] MEDS: allopurinoL 100 MG TABLET PO SCH ×2 (10:16→21:51)
[2021-01-11] MEDS ORDERED: FUROSEMIDE 40 MG/4 ML VIAL IV ONE (12:52)
[2021-01-11] MEDS ORDERED: POTASSIUM CHLORIDE 10 MEQ TABLET PO ONE (12:54)
[2021-01-11] MEDS: ATORVASTATIN 40 MG TABLET PO SCH (21:52)
[2021-01-12] MEDS: INSULIN REGULAR 100 UNIT/ML SUBCUT SCH ×4 (00:43→12:52)
[2021-01-12 05:07] LABS: Basophils % 0.2 % (0.0-0.8); Eosinophils # 0.2 10*3/uL (0.0-0.87); Eosinophils % 2.1 % (0.00-10.9); Hematocrit 29.6 VOL% (42.0-52.0); Hemoglobin 9.8 GM/DL (14.0-18.0); Immature Granulocytes % 0.7 %; Immature Granulocytes Absolute 0.06 #; Lymphocytes # 1.1 10*3/uL (1.4-4.0); Lymphocytes % 12.4 % (21.2-54.2); Mean Corpuscular HGB Conc 33.1 GM/DL (32-36); Mean Corpuscular Volume 91.4 FL (87-102); Mean Platelet Volume 9.5 FL (9.6-12.0); Monocytes % 10.6 % (1.7-12.7); Platelet Count 324 T/CUMM (130-400); Red Blood Count 3.24 MC/CUMM (3.8-5.5)
[2021-01-12 05:22] LABS: Calcium 8.3 MG/DL (8.5-10.1); Osmolality,Calculated 288.1 MOS/KG (273-304); Potassium 4.1 MMOL/L (3.5-5.1)
[2021-01-12] MEDS: CHLORHEXIDINE 0.12% ORAL RINSE 60 ML BOTTLE SWISH/SPIT SCH (08:05)
[2021-01-12] MEDS ORDERED: carvediloL 25 MG TABLET PO SCH (09:00)
[2021-01-12] MEDS ORDERED: INSULIN GLARGINE 100 UNIT/ML SUBCUT SCH (09:00)
[2021-01-12] MEDS ORDERED: EPOETIN ALFA-EPBX 2,000 UNIT/ML VIAL IV PRN (11:07)
[2021-01-12] MEDS: FERROUS SULFATE 325 MG TABLET PO SCH (12:50)
[2021-01-12] MEDS: POLYETHYLENE GLYCOL POWDER 17 GM PACK PO SCH (12:50)
[2021-01-12] MEDS: PANTOPRAZOLE 40 MG TABLET PO SCH (12:51)
[2021-01-12] MEDS: DOCUSATE SODIUM 100 MG CAPSULE PO SCH (12:51)
[2021-01-12] MEDS: ASCORBIC ACID 500 MG TABLET PO SCH (12:51)
[2021-01-12] MEDS: ASPIRIN EC 325 MG TABLET PO SCH (12:51)
[2021-01-12] MEDS: ISOSORBIDE MONONITRATE 30 MG TABLET PO SCH (12:51)
[2021-01-12] MEDS: allopurinoL 100 MG TABLET PO SCH (12:51)
[2021-01-12] MEDS: glipiZIDE 10 MG TABLET PO SCH (13:21)
[2021-01-12 13:25] VITALS: BP 152/69
== END 2021-01-12 15:20 | disposition home health service (06) | DRG 233 ==
LOC: N.ED 20:15 → N.TELEN 20:15 → SUATTDRO 12-22 00:24 → N.TELEN 12-22 01:45 → SUATTDRO 12-22 12:07 → N.CVR 01-02 12:42 → N.ICU 01-03 16:08 → N.TELES 01-06 14:45
PROVIDERS: ADMIT Internal Medicine Geriatric Medicine